=== PATIENT | male | born 1955 | race Caucasian/White ===

== ENCOUNTER 2018-08-03 06:33 | Day surgery (SDC) | payer OTHER ==
[~2018-08-03] VITALS: Ht 175.3 cm; Wt 116.5 kg
[~2018-08-03 06:33] MED LIST: BENA5TA PO; LIPI20TA PO
[2018-08-03] MEDS ORDERED: NS 1,000 ML IV ONE (07:00)
[2018-08-03] MEDS ORDERED: PROPOFOL 200 MG/20 ML VIAL As Ordered ONE ×2 (07:58→08:02)
--- NOTE | 2018-08-03 08:15 | ROOR ---
Patient Name: Liss Cantu Procedure Date: 08/03/2018 7:56 AM Date of : 1955 Age: 63 Room: [facility] Gender: Male Note Status: Finalized Procedure: Colonoscopy Indications: High risk colon cancer surveillance: Personal history of colonic polyps Providers: Ras ODOM MD Referring MD: LISS DEL CASTILLO DO Requesting Provider: Medicines: Monitored Anesthesia Care Complications: No immediate complications. Procedure: Pre-Anesthesia Assessment: - The heart rate, respiratory rate, oxygen saturations, blood pressure, adequacy of pulmonary ventilation, and response to care were monitored throughout the procedure. The Colonoscope was introduced through the anus and advanced to the cecum, identified by appendiceal orifice and ileocecal valve. The colonoscopy was performed without difficulty. The patient tolerated the procedure well. The quality of the bowel preparation was good. Findings: The perianal and digital rectal examinations were normal. A diminutive polyp was found in the sigmoid colon. The polyp was sessile. The polyp was removed with a cold snare. Resection and retrieval were complete. A few small-mouthed diverticula were found in the sigmoid colon. A tattoo was seen in the distal sigmoid colon. A post-polypectomy scar was found at the tattoo site. There was no evidence of residual polyp tissue. The exam was otherwise without abnormality on direct and retroflexion views. Impression: - One diminutive polyp in the sigmoid colon, removed with a cold snare. Resected and retrieved. - Mild diverticulosis in the sigmoid colon. - A tattoo was seen in the distal sigmoid colon. A post-polypectomy scar was found at the tattoo site. There was no evidence of residual polyp tissue. - The examination was otherwise normal on direct and retroflexion views. Recommendation: - Repeat colonoscopy in 5 years for surveillance. Ras Odom MD Ras ODOM MD 08/03/2018 8:15:04 AM This report has been signed electronically. Number of Addenda: 0 Note Initiated On: 08/03/2018 7:56 AM Estimated Blood Loss: Estimated blood loss: none.
[2018-08-03 08:35] VITALS: BP 129/75
== END 2018-08-03 08:48 | disposition home or self-care (01) ==
LOC: M OPP 06:33
PROVIDERS: ATTEND Internal Medicine Gastroenterology
DX: D12.5 Benign neoplasm of sigmoid colon (principal); K57.30 Diverticulosis of large intestine without perforation or abscess without bleeding; Z86.010 Personal history of colon polyps

== ENCOUNTER → 2019-07-11 | Outpatient (CLI) | payer OTHER ==
--- NOTE | 2019-07-12 21:29 | ECGEPIP ---
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
== END ==
LOC: M EKG 08:54
PROVIDERS: ATTEND Orthopaedic Surgery
DX: Z01.810 Encounter for preprocedural cardiovascular examination (principal)

== ENCOUNTER 2023-12-07 06:28 | Day surgery (SDC) | payer OTHER ==
[~2023-12-07] VITALS: Ht 175.3 cm; Wt 120.9 kg
[~2023-12-07 06:28] MED LIST changes: +BENA1TAB23 PO; -BENA5TA PO; +NS 1,000 ML IV ONE
[2023-12-07 07:49] VITALS: TEMP 98.6
[2023-12-07 08:01] VITALS: BP 133/62; O2SAT 95
[2023-12-07] MEDS ORDERED: propofoL 200 MG/20 ML VIAL As Ordered ONE (08:04)
== END 2023-12-07 08:07 | disposition home or self-care (01) ==
LOC: M OPP 06:28
PROVIDERS: ATTEND Internal Medicine Gastroenterology
DX: Z12.11 Encounter for screening for malignant neoplasm of colon (principal); Z86.010 Personal history of colon polyps; K51.40 Inflammatory polyps of colon without complications; K64.8 Other hemorrhoids; K57.30 Diverticulosis of large intestine without perforation or abscess without bleeding; E78.5 Hyperlipidemia, unspecified; Z79.02 Long term (current) use of antithrombotics/antiplatelets